=== PATIENT | female | born 1990 | race Caucasian/White ===

== ENCOUNTER 2021-09-01 07:18 | Inpatient (IN) | payer OTHER ==
[~2021-09-01] VITALS: Ht 160 cm; Wt 68.5 kg
[2021-09-01 08:39] LABS: HEMOGLOBIN 12.1 gm/dl (12.3-15.3); RED BLOOD COUNT 4.31 M/UL (4.00-5.10); WHITE BLOOD COUNT 11.9 K/UL (4.5-11.0)
[2021-09-01] MEDS ORDERED: ZYRTEC10 M3 PO (09:04)
[2021-09-01] MEDS ORDERED: IBU600 MG PO (12:28)
[2021-09-01] MEDS ORDERED: COLACE 100MG C100 MG PO (12:28)
[2021-09-02 07:29] LABS: HEMOGLOBIN 9.6 gm/dl (12.3-15.3)
== END 2021-09-02 16:14 | disposition home or self-care (01) | DRG 807 ==
LOC: GENOP 07:18 → OB 08:20
PROVIDERS: Obstetrics & Gynecology; ADMIT Obstetrics & Gynecology
PROC: 10E0XZZ Delivery of Products of Conception, External Approach (ICD-10-PCS; principal; 2021-09-01)
PROC: 0KQM0ZZ Repair Perineum Muscle, Open Approach (ICD-10-PCS; 2021-09-01)
PROC: 10907ZC Drainage of Amniotic Fluid, Therapeutic from Products of Conception, Via Natural or Artificial Opening (ICD-10-PCS; 2021-09-01)
PROC: 3E033VJ Introduction of Other Hormone into Peripheral Vein, Percutaneous Approach (ICD-10-PCS; 2021-09-01)
PROC: 3E0234Z Introduction of Serum, Toxoid and Vaccine into Muscle, Percutaneous Approach (ICD-10-PCS; 2021-09-01)
DX: O48.0 Post-term pregnancy (principal); Z37.0 Single live birth; O70.1 Second degree perineal laceration during delivery; Z20.822 Contact with and (suspected) exposure to COVID-19; Z3A.40 40 weeks gestation of pregnancy; Z28.310 Unvaccinated for COVID-19; Z82.49 Family history of ischemic heart disease and other diseases of the circulatory system; Z80.3 Family history of malignant neoplasm of breast; Z80.8 Family history of malignant neoplasm of other organs or systems; Z23 Encounter for immunization
CPT/HCPCS: 81001; 82800; 85014; 85018; 85025; 90471; 90715; J2590; J3010; J7120; U0002